=== PATIENT | female | born 1945 | race Caucasian/White ===

== ENCOUNTER 2020-04-19 00:23 | Outpatient (CLI) | payer MEDICARE, SELFPAY ==
[2020-04-19 18:10] LABS: SARS-CoV-2 RNA PCR Negative
== END 2020-04-19 00:24 | disposition home or self-care (01) ==
LOC: ANHCOVIDDT 00:23
PROVIDERS: PCP Family Medicine; Visit Provider Urology
DX: Z20.828 Contact with and (suspected) exposure to other viral communicable diseases (principal); Z01.812 Encounter for preprocedural laboratory examination
CPT/HCPCS: 87635; C9803; U0003

== ENCOUNTER 2020-04-21 02:26 | Day surgery (SDC) | payer MEDICARE, SELFPAY ==
[2020-04-06 15:46] VITALS: BMI 32.9
[2020-04-21] VITALS (7 sets, daily range): BP systolic 119–137; BP diastolic 75–95; PULSE 91–98; RESP 16–20; TEMP 36.2–36.8; O2SAT 93–96
[2020-04-21] MEDS: LACTATED RINGERS 1,000 ML 30 ML IV CONT (06:40)
--- NOTE | 2020-04-21 07:12 | P.PNAN_ITS ---
Anes - Initial Pre Proc Eval Procedure: Operation Date: 04/21/20 08:00 Proposed Procedures p Urethral Sling - Milad Purcell MD Date/Time: 04/21/20 07:12 Surgeon: Milad Purcell MD Pre Op Diagnosis: Stress Incontinence Patient Data Age: 74 Gender: F Height: 5 ft 2 in Weight: 81.65 kg Allergies Allergy/AdvReac Type Severity Reaction Status Date / Time No Known Allergies Allergy Verified 04/21/20 06:17 Home Medications Medication Instructions Recorded Confirmed Type aripiprazole [Abilify] 5 mg PO DAILY 04/06/20 04/21/20 History azelastine 1 spray INTRANASAL BID 04/06/20 04/21/20 History bupropion HCl [Wellbutrin XL] 300 mg PO QAM 04/06/20 04/21/20 History calcium carbonate-vitamin D3 1 cap PO DAILY 04/06/20 04/21/20 History [Calcium 600 + D(3)] cholecalciferol (vitamin D3) 25 mcg PO DAILY 04/06/20 04/21/20 History cyanocobalamin (vitamin B-12) 1,000 mcg PO DAILY 04/06/20 04/21/20 History dorzolamide-timolol 1 drp LEFTEYE BID 04/06/20 04/21/20 History duloxetine 30 mg PO DAILY 04/06/20 04/21/20 History esomeprazole magnesium [Nexium] 20 mg PO DAILY 04/06/20 04/21/20 History fluticasone propion-salmeterol 2 puff INHALATION BID 04/06/20 04/21/20 History [Advair HFA] latanoprost 1 drp OPHTHALMIC (EYE) QPM 04/06/20 04/21/20 History levothyroxine 100 mcg PO DAILY 04/06/20 04/21/20 History loratadine-pseudoephedrine 1 tablet PO Q12H 04/06/20 04/21/20 History [Claritin-D 12 Hour] metoclopramide HCl [Reglan] 10 mg PO BID 04/06/20 04/21/20 History wamcravg-bnj-mpai-FA-lutein 1 tablet PO DAILY 04/06/20 04/21/20 History [Centrum Silver Women] simvastatin 40 mg PO HS 04/06/20 04/21/20 History vitamin E 100 unit PO DAILY 04/06/20 04/21/20 History Patient hx anesthesia problems: none Family hx anesthesia problems: none [facility] Past Medical History Medical History (Updated 04/21/20 @ 07:13 by Duncan Mcdermott MD) COPD (chronic obstructive pulmonary disease) HTN (hypertension) Hyperlipidemia Surgical History Surgical History (Updated 04/21/20 @ 07:13 by Duncan Mcdermott MD) History of cholecystectomy Hx of tonsillectomy Anes - Eval Final PreProcedure Day of Procedure 04/21/20 07:12 Patient weight: obese Heart: regular rate and rhythm Lungs: clear to auscultation Airway: Mallampati scale class II Neurological: alert and oriented Last oral intake: >/= 8 hours ASA classification: III Emergent: no Anesthetic plan: proceed Anesthesia type and monitoring: general GIVS and standard monitoring Informed Consent: The patient's anesthetic plan and its attendant risks and benefits were discussed with the patient/family/POA. Questions were solicited and answers provided to the satisfaction of the patient/family/POA.
--- NOTE | 2020-04-21 07:13 | WPDHPUPDATE1 ---
History and Physical Update Update Date/Time: 04/21/20 07:13 History and Physical has been reviewed, including an updated exam of the patient. There are NO changes in the patient's condition. Risks, benefits, and alternatives have been discussed and questions answered. Patient agrees to proceed with procedure.
[2020-04-21] MEDS: ceFAZolin 2 GM/D5W 50 ML 2 GM/50 ML BAG IVPB (08:02)
[2020-04-21] MEDS: BUPIVACAINE/EPINEPHRINE 0.5% 30 ML VIAL INFILTRATE (08:19)
--- NOTE | 2020-04-21 08:37 | PM.PROC ---
Procedure Note - Detailed Date of procedure: 04/21/20 Pre-op diagnosis: Stress Incontinence Stress urinary incontinence Post-op diagnosis: same Procedure performed: Transobturator Mid-urethral sling Cystoscopy Description of procedure: This is a patient with confirmed stress urinary incontinence. She desires correction. She understands the risks of bleeding, infection, damage to the urinary tract, lack of cure of stress incontinence, recurrence of stress incontinence, postoperative voiding dysfunction including incontinence and retention, need for ancillary procedures to loosen remove the sling, postoperative voiding dysfunction including retention and overactive bladder, hip and leg pain, dyspareunia, mesh related complications including exposure and extrusion. She agrees to proceed. She understands it will not help overactive bladder symptoms if present. She was correctly identified and informed consent obtained. She is brought to the operating room. She was given appropriate anesthesia. She was placed in the dorsal lithotomy position. All pressure points were padded. She was given appropriate perioperative antibiotics and a time-out performed. A Putnam catheter is placed. I marked out the thigh incisions anesthetize the skin and made those incisions. I anesthetized the anterior vaginal wall over the mid urethra. I made a 1 cm incision. I dissected out laterally taking great care not to injure the urethra or the vaginal wall. Passed the helical trocars 1st on the left and then on the right from the thigh incision towards the vaginal incision. Sling was connected to the trocars and brought out through the thigh incision. I tensioned the sling appropriately. I cut and removed the plastic sheaths. I closed the incision with 2 0 Vicryl. I then performed cystoscopy. There was no surgical artifact or abnormalities inside the bladder. The urethra was normal without surgical artifact. I cut the excess sling material. I closed the incisions with glue. She was awakened and transferred to the PACU in stable condition. Implants: Mid urethral sling Surgeon: Milad Purcell MD Drains: No Packing: No Pathology: none sent Complications: No immediate complications Condition: stable Disposition: PACU
== END 2020-04-21 10:10 | disposition home or self-care (01) ==
PROVIDERS: PCP Family Medicine; Visit Provider Urology
PROC: (CPT 57288; principal; 2020-04-21 08:00)
DX: N39.3 Stress incontinence (female) (male) (principal); I10 Essential (primary) hypertension; E78.5 Hyperlipidemia, unspecified; J44.9 Chronic obstructive pulmonary disease, unspecified; E66.9 Obesity, unspecified; Z68.32 Body mass index [BMI] 32.0-32.9, adult
CPT/HCPCS: 57288; A9270; C1771; J0690; J2405; J2704; J3010; J7030; J7120